=== PATIENT | male | born 1980 | race Caucasian/White ===

== ENCOUNTER → 2017-12-28 | Outpatient (REF) | payer OTHER, MEDICAID ==
[2017-12-30 08:06] LABS: ALPHA 1 ANTITRYPSIN 138 mg/dL (90-200)
== END ==
LOC: M LAB REF 16:24
DX: J42 Unspecified chronic bronchitis (principal)
CPT/HCPCS: 82103

== ENCOUNTER 2024-10-01 16:52 | Emergency (ER) | payer MEDICAID, OTHER ==
[~2024-10-01] VITALS: Ht 162.6 cm; Wt 68.1 kg
[2024-10-01] MEDS: IBUPROFEN 800 MG TAB PO ONE (19:32)
[2024-10-01 21:00] VITALS: BP 112/71; TEMP 97.6
[2024-10-01 21:30] VITALS: O2SAT 95
== END 2024-10-01 21:58 | disposition home or self-care (01) ==
LOC: M ED 16:52
DX: S61.313A Laceration without foreign body of left middle finger with damage to nail, initial encounter (principal); X58.XXXA Exposure to other specified factors, initial encounter; Y92.009 Unspecified place in unspecified non-institutional (private) residence as the place of occurrence of the external cause; Y93.89 Activity, other specified; Y99.9 Unspecified external cause status; F17.200 Nicotine dependence, unspecified, uncomplicated; Z88.5 Allergy status to narcotic agent